=== PATIENT | female | born 1995 | race African-American/Black ===

== ENCOUNTER 2023-01-31 09:45 | Outpatient (RCR) | payer OTHER, SELFPAY ==
--- NOTE | 2022-11-10 16:00 | OT.OP.EVAL ---
Visit Care Team Role Provider Type Jasmine Arteaga PA-C Attending Provider Non-Staff Family Provider Primary Care Provider Referring Provider Specialty: Medical Address: [address] [facility] [address], [place], [address] Email: Occupational Therapy Initial Evaluation OT Outpatient Adult Evaluation Start: 11/14/22 12:28 Freq: Status: Active Protocol: Document 11/10/22 16:00 AMS (Rec: 11/14/22 13:01 AMS [id number]) General Information - Adult Plan of Care Dates 11/10/22 - 01/05/23 Insurance Information Prime; EVAL ONLY --> then 12 vists Visit Start Time 07:40 Visit Stop Time 08:15 Total Visit Minutes 35 Treatment Setting Outpatient Care Note Type Initial Evaluation Identification Confirmed Yes Identification Confirmed By Self Goals Short Term Goals 1. Tyi will present with improved pain-free active range of motion of wrist: 1a. 0-45 degrees pain-free active R wrist flexion. 1b. 0-55 degrees pain-free active R wrist extension. 1c. 0-20 degrees pain-free active R wrist UD. Half-Way Goals 1. Tyi will be modified independent with home exercise program utilizing provided written and visual instructions from therapist. 2. Tyi will present with improved right wrist strength: 2a. 5/5 MMT right wrist flexion. 2b. 5/5 MMT right wrist extension. 2c. 5/[address] 2d. 5/5 MMT right wrist UD. 3. Tyi will present with increased ability to actively participate in meaningful activities (including lifting) ; this will be evidenced by the followina. Tyi will indicate 2 or less out of 10 on the Pain Assessment Grid relative to the distal R UE. 3b. Tyi will obtain a score of 25.00 or less on the QuickDASH UE Outcome Measure. 3c. Tyi will obtain a score of 25.00 or less on the QuickDASH UE Sports/Performing Arts Module. 3d. Tyi will report that she is able to execute 10 or more push-ups without complaints of pain/discomfort of the distal R UE. Assessment/Plan Treatment Assessment Krunal is a 26 year-old right hand dominant female referred to outpatient OT secondary to suspected R flexor tendonitis. Medical history: Depression; Tonsillectomy (October 2020). 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 Symptoms presented reported in Mar/Apr and over the last couple of weeks symptoms have gotten worse. On Pain Assessment Grid, Krunal indicated 8 out of 10 on the Pain Assessment Grid relative to the distal R UE (dorsal/ volar surfaces of the R hand were specifically indicated on the hand/wrist Pain Assessment Grid). She obtained a QuickDASH UE Outcome Measure Score of = 54.55 and QuickDASH UE Outcome Measure Sports/Performing Arts ( Lifting) Module Score of = 37. 50. Pain reported w/ palpation of the R volar wrist; tightness of thumb adductor palpated R > L. She does c/o numbness; with reverse Phalen' s test, she was able to tolerate positioning of wrists in bilateral flexion x 1 minute however, some discomfort was noted. She Tyi denies use of right distal UE brace; she is not doing push- ups and has decreased weight/ resistance w/ lifting secondary to symptoms. She is icing and doing stretches for the wrists throughout the day, as well as taking anti inflammatory. Goniometer Measurements: 0-45 degrees active R wrist flexion versus 0-30 degrees active pain-free R wrist flexion; 0-55 degrees active R wrist extension versus 0-45 degrees pain-free active R wrist extension; 0-15 degrees active R pain-free wrist RD; 0-20 degrees active R wrist UD versus 0-15 degrees active pain-free R wrist UD. MMT results = 3/5 R wrist flex MMT; 3+/5 wrist ext MMT; 3/[address] MMT; 3/5 wrist UD MMT. Dynamometer II strength testing results = 18.0# of force R silo painter versus 68.0# of force w/ L silo painter w/ elbow in 90 degrees; 5.0# of force w/ R silo painter versus 52.0# of force w/ L silo painter w/ elbow in ext. Krunal presents with distal R UE pain/discomfort, decreased pain-free R wrist ROM, decreased R wrist strength, decreased silo painter strength, and decreased ability to engage in meaningful activities, including lifting; she would likely benefit from outpatient OT to address these areas in order to maximize her success w/ active engagement in meaningful activites in day-to -day life. Recommend monitoring for signs of median nerve impingement given Tyi's concerns; recommend completing Tinel's test. Home Exercise Program 11/10/22 = Provided w/ [employer] theraputty d/t concerns w/ decreased silo painter strength; instructed in care and storage of theraputty. Rec working on gross flexion and pinching and pulling theraputty. Rec wrist flexion and wrist extension passive range of motion exercises; holding each stretch for 20 to 30 seconds. Also instructed in self myofascial release of bilateral thumb adductors w/ instruction to hold for 20 to 30 seconds. Length of treatment (weeks) 8 Plan of Care Start Date 11/10/22 Plan of Care End Date 01/05/23 Treatment Frequency Once a Week Therapeutic Contents Active Range of Motion, Adaptive Equipment Education, Client Education,Cognitive Skills Development,Functional Activities,Home Exercise Program,Joint Protection, Manual Therapy,Education, Neurodevelopment Treatment, Self-Care,Stretching/ Flexibility Activities, Therapeutic Activities, Therapeutic Exercises, Modalities Modalities As Needed,As Prescribed Additional Types of Modalities Ultrasound/Heat/Ice/Contrast baths/Paraffin bath
--- NOTE | 2022-11-15 16:00 | OT.OP.TRT ---
Visit Care Team Role Provider Type Jasmine Arteaga PA-C Attending Provider Non-Staff Family Provider Primary Care Provider Referring Provider Specialty: Medical Address: [address] [place] [address] , [place], [address] Email: Occupational Therapy Treatment Note OT Outpatient Treatment Note - Adult Start: 11/14/22 12:28 Freq: Status: Active Protocol: Document 11/15/22 16:00 AMS (Rec: 11/16/22 09:30 AMS [id number]) OT Outpatient Adult Treatment Note Session Time Visit Start Time 07:30 Visit Stop Time 08:15 Total Visit Minutes 45 Visit Information Visit Number [id number] Plan of Care Dates 11/10/22 - 01/05/23 Insurance Information Prime; EVAL ONLY --> then 12 visits Visit Type Note Type Treatment Note General Information General Information Krunal is a 26 year-old right hand dominant female referred to outpatient OT secondary to suspected R flexor tendonitis. Medical history: Depression; Tonsillectomy (October 2020). 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 - Subjective Identification Type Name Identification Reconciled With Medical Record Observations Krunal reports completing recommended stretches. She reports bench pressing 250# versus current weight of 140#. Patient/Caregiver Compliance with Home Excellent Exercise Program - Objective Objective Measurements Please refer to below for progress towards meeting established OT goals: Short Term Goals 1. Tyi will present with improved pain-free active range of motion of wrist: 1a. 0-45 degrees pain-free active R wrist flexion. 1b. 0-55 degrees pain-free active R wrist extension. 1c. 0-20 degrees pain-free active R wrist UD. Senior Living Goals 1. Tyi will be modified independent with home exercise program utilizing provided written and visual instructions from therapist. 2. Tyi will present with improved right wrist strength: 2a. 5/5 MMT right wrist flexion. 2b. 5/5 MMT right wrist extension. 2c. 5/[address] 2d. 5/5 MMT right wrist UD. 3. Tyi will present with increased ability to actively participate in meaningful activities (including lifting) ; this will be evidenced by the followina. Tyi will indicate 2 or less out of 10 on the Pain Assessment Grid relative to the distal R UE. 3b. Tyi will obtain a score of 25.00 or less on the QuickDASH UE Outcome Measure. 3c. Krunal will obtain a score of 25.00 or less on the QuickDASH UE Sports/Performing Arts Module. 3d. Krunal will report that she is able to execute 10 or more push-ups without complaints of pain/discomfort of the distal R UE. - Exercises 7 Descriptor Weight bearing. TT. L <-> R weight shift. 2 x 10. Box. Bosu. starting plank w/ dynamic stabilization. 6 Descriptor Wrist strengthening/Dynamic stabilization. 2.2# weighted spherical ball. Catching. 2 x 10. 5 Descriptor Wrist strengthening. TB #4. 1 x 15. Wrist flex. Wrist ext. Wrist UD (TT loop). Wrist RD. 4 Descriptor Self myofascial release. Carpal ligament 3 Descriptor Tendon glides. 2 Descriptor Passive range of motion. Wrist extension. Wrist flexion . - Assessment Assessment of Improvement Upgraded home exercise program . Reproduction of symptoms w/ Tinel's test reported. Thus, recommended splint wearing at night. Will need to follow-up. 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 Home Exercise Program 11/16/22 = Provided personal TB #4 resistance band. Rec 3 sets of 15 reps every other day or 3 x a week. Wrist flex. Wrist ext. Wrist RD. Wrist UD. Instructed in tendon glides. Instructed in self myofascial release (carpal ligament) at wall. Recommended wrist cock- up splint w/ rigid volar wrist component. - Plan Therapy Recommendations Continue with Current Program, Advance per Rehabilitation Protocol
--- NOTE | 2022-11-29 10:52 | OT.OP.TRT ---
Visit Care Team Role Provider Type Jasmine Arteaga PA-C Attending Provider Non-Staff Family Provider Primary Care Provider Referring Provider Specialty: Medical Address: [address], [place], [address] Email: Occupational Therapy Treatment Note OT Outpatient Treatment Note - Adult Start: 11/14/22 12:28 Freq: Status: Active Protocol: Document 11/29/22 10:41 AMS (Rec: 11/29/22 10:52 AMS [id number]) OT Outpatient Adult Treatment Note Session Time Visit Start Time 07:35 Visit Stop Time 08:20 Total Visit Minutes 45 Visit Information Visit Number [id number] Plan of Care Dates 11/10/22 - 01/05/23 Insurance Information Prime; EVAL ONLY --> then 12 visits Setting Treatment Setting Outpatient Care Visit Type Note Type Treatment Note General Information General Information Krunal is a 26 year-old right hand dominant female referred to outpatient OT secondary to suspected R flexor tendonitis. Medical history: Depression; Tonsillectomy (October 2020). 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 - Subjective Identification Type Name Identification Reconciled With Medical Record Observations Krunal reports taking a break from weight lifting at this time; she is also currently rehabilitating her L knee w/ PT. 11/29/22 = She reports bench pressing 250# versus current weight of 140#. Patient/Caregiver Compliance with Home Excellent Exercise Program - Objective Objective Measurements Please refer to below for progress towards meeting established OT goals: Short Term Goals 1. Tyi will present with improved pain-free active range of motion of wrist: 1a. 0-45 degrees pain-free active R wrist flexion. 1b. 0-55 degrees pain-free active R wrist extension. 1c. 0-20 degrees pain-free active R wrist UD. Correction Goals 1. Tyi will be modified independent with home exercise program utilizing provided written and visual instructions from therapist. 2. Tyi will present with improved right wrist strength: 2a. 5/5 MMT right wrist flexion. 2b. 5/5 MMT right wrist extension. 2c. 5/[address] 2d. 5/5 MMT right wrist UD. 3. Tyi will present with increased ability to actively participate in meaningful activities (including lifting) ; this will be evidenced by the followina. Tyi will indicate 2 or less out of 10 on the Pain Assessment Grid relative to the distal R UE. 3b. Tyi will obtain a score of 25.00 or less on the QuickDASH UE Outcome Measure. 3c. Tyi will obtain a score of 25.00 or less on the QuickDASH UE Sports/Performing Arts Module. 3d. Tyi will report that she is able to execute 10 or more push-ups without complaints of pain/discomfort of the distal R UE. - Exercises 7 Descriptor Weight bearing. Box. Bosu. Starting plank w/ dynamic stabilization. 2 x 10. 6 Descriptor Wrist strengthening/Dynamic stabilization. 3.3# weighted spherical ball. Angled Trampoline. Overhand throw w/ R handed catch w/ wrist in ext/forearm pronation 1 x 15. Overhand throw w/ alternating UE catch w/ wrist in ext/foream supination 1 x 15. Overhand throw w/ sh abd w / wrist in ext/forearm pronation 1 x 15. Approx 5-inch ball. Palm positioned at shoulder height w/ elbow in ext w/ wrist ext/ forearm pronation. L <-> R 1 x 15. CW/CCW circles 1 x 15. Up <-> down 1 x 15. Box bosu. TT. 2 x 15. Not ready to progress to floor level. 5 Descriptor Wrist strengthening. Elbow in 90 degrees flexion. Forearm supported on arm rest w/ wrist ext, flex, RD. Wrist ext 4# DB. 3 x 15. Wrist flex 4# DB. [address] 4# DB. 3 x 15. Wrist UD 4# DB. 3 x 15. Wrist ext 2 cycles. 5# DB w/ elbows extended w/ use of dowel/rope. Wrist flex 1 cycle. 5# DB w/ elbows extended w/ use of dowel/rope. 11/29/22 = c/o discomfort; thus , transitioned to DB use. TB # 4. 1 x 15. Wrist flex. Wrist ext. Wrist UD (TT loop). Wrist RD. 4 Descriptor Self myofascial release. Carpal ligament 3 Descriptor Tendon glides. 2 Descriptor Passive range of motion. Wrist extension. Wrist flexion . Distraction of wrist. - Assessment Assessment of Improvement (+) use of splint; will need to review splint wearing schedule. Report of 5-7 on verbal pain scale relative to R wrist pain. Transitioned to DB strengthening given c/o exacerbation of symptoms w/ use of TB. Upgraded dynamic stabilization exercises; introduced angled trampoline w / throw and catch w/ weighted spherical ball. Also introduced wall wrist stabilization exercises w/ use of ball and wrist strengthening exercises w/ use of dowel/rope w/ attached DB. Overall, good session. Ice massage to ulnar volar surface of R wrist x 6 minutes. Krunal presents with distal R UE pain/discomfort, decreased pain-free R wrist ROM, decreased R wrist strength, decreased on call strength, and decreased ability to engage in meaningful activities, including lifting; she would likely benefit from outpatient OT to address these areas in order to maximize her success w/ active engagement in meaningful activites in day-to -day life. Home Exercise Program 11/16/22 = Provided personal TB #4 resistance band. Rec 3 sets of 15 reps every other day or 3 x a week. Wrist flex. Wrist ext. Wrist RD. Wrist UD. Instructed in tendon glides. Instructed in self myofascial release (carpal ligament) at wall. Recommended wrist cock- up splint w/ rigid volar wrist component. - Plan Therapy Recommendations Continue with Current Program, Advance per Rehabilitation Protocol
--- NOTE | 2022-12-06 09:26 | OT.OP.TRT ---
Visit Care Team Role Provider Type Jasmine Arteaga PA-C Attending Provider Non-Staff Family Provider Primary Care Provider Referring Provider Specialty: Medical Address: [address] [facility] , [place], [address] Email: Occupational Therapy Treatment Note OT Outpatient Treatment Note - Adult Start: 11/14/22 12:28 Freq: Status: Active Protocol: Document 12/06/22 09:17 AMS (Rec: 12/06/22 09:26 AMS [id number]) OT Outpatient Adult Treatment Note Session Time Visit Start Time 08:33 Visit Stop Time 09:13 Total Visit Minutes 40 Visit Information Visit Number 07/[id number] Plan of Care Dates 11/10/22 - 01/05/23 Insurance Information Prime; EVAL ONLY --> then 12 visits Setting Treatment Setting Outpatient Care Visit Type Note Type Treatment Note General Information General Information Krunal is a 26 year-old right hand dominant female referred to outpatient OT secondary to suspected R flexor tendonitis. Medical history: Depression; Tonsillectomy (October 2020). 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 - Subjective Identification Type Name Identification Reconciled With Medical Record Observations Krunal reports discomfort of R wrist w/ shooting discomfort to dorsal 3rd digit of the R hand. 11/29/22 = She reports bench pressing 250# versus current weight of 140#. Patient/Caregiver Compliance with Home Excellent Exercise Program - Objective Objective Measurements Please refer to below for progress towards meeting established OT goals: Short Term Goals 1. Tyi will present with improved pain-free active range of motion of wrist: 1a. 0-45 degrees pain-free active R wrist flexion. 1b. 0-55 degrees pain-free active R wrist extension. 1c. 0-20 degrees pain-free active R wrist UD. Dining Room Supervisor Goals 1. Tyi will be modified independent with home exercise program utilizing provided written and visual instructions from therapist. 2. Tyi will present with improved right wrist strength: 2a. 5/5 MMT right wrist flexion. 2b. 5/5 MMT right wrist extension. 2c. 5/[address] 2d. 5/5 MMT right wrist UD. 3. Tyi will present with increased ability to actively participate in meaningful activities (including lifting) ; this will be evidenced by the followina. Tyi will indicate 2 or less out of 10 on the Pain Assessment Grid relative to the distal R UE. 3b. Tyi will obtain a score of 25.00 or less on the QuickDASH UE Outcome Measure. 3c. Tyi will obtain a score of 25.00 or less on the QuickDASH UE Sports/Performing Arts Module. 3d. Tyi will report that she is able to execute 10 or more push-ups without complaints of pain/discomfort of the distal R UE. - Treatment 1 Descriptor Manual. Support of wrist range of motion. Exercises 7 Descriptor Weight bearing. Box. Bosu. Starting plank w/ dynamic stabilization. 2 x 10. 6 Descriptor Wrist strengthening/Dynamic stabilization. 3.3# weighted spherical ball. Angled Trampoline. Overhand throw w/ R handed catch w/ wrist in ext/forearm pronation 1 x 15. Overhand throw w/ alternating UE catch w/ wrist in ext/foream pronation 1 x 15 . Overhand throw w/ sh abd w/ wrist in ext/forearm pronation 1 x 15. N/A 12/06/22 Approx 5-inch ball. Palm positioned at shoulder height w/ elbow in ext w/ wrist ext/ forearm pronation. L <-> R 1 x 15. CW/CCW circles 1 x 15. Up <-> down 1 x 15. Box bosu. TT. 2 x 15. Not ready to progress to floor level. 5 Descriptor Wrist strengthening. Elbow in 90 degrees flexion. Forearm supported on arm rest w/ wrist ext, flex, RD. Wrist ext 4# DB. 3 x 15. Wrist flex 4# DB. [address] 4# DB. 3 x 15. Wrist UD 4# DB. 3 x 15. Wrist arc 3.3# weighted spherical ball. 3 x 15. Elbow in slight flexion. TT. N/A 12/06/22 Wrist ext 2 cycles. 5# DB w/ elbows extended w/ use of dowel/rope. Wrist flex 1 cycle. 5# DB w/ elbows extended w/ use of dowel/rope. 11/29/22 = c/o discomfort; thus , transitioned to DB use. TB # 4. 1 x 15. Wrist flex. Wrist ext. Wrist UD (TT loop). Wrist RD. 4 Descriptor Wall walk-outs. Hands positioned at sh height. 1 x 15. 3 Descriptor Squat machine. 12# Modified push-ups. 1 x 15. 12# Modified push-ups balance disk (horizontal positioning). 1 x 15. 12# Modified push-ups balance disk (vertical positioning). 1 x 15. 2 Descriptor Passive range of motion. Wrist extension. Wrist flexion . Distraction of wrist. - Assessment Assessment of Improvement (+) use of splint. (+) report of carry-over of home exercise program recommendations. Report of inconsistent presentation of pain/ discomfort of the R wrist; report of some discomfort ' shooting' into 3rd digit of the R hand. Discomfort reported w/ passive wrist ext and RD/UD. Thus, completed wall/squat machine exercises versus utilization of bosu. Overall, good session. Krunal presents with distal R UE pain/discomfort, decreased pain-free R wrist ROM, decreased R wrist strength, decreased health care attorney strength, and decreased ability to engage in meaningful activities, including lifting; she would likely benefit from outpatient OT to address these areas in order to maximize her success w/ active engagement in meaningful activites in day-to -day life. Home Exercise Program 11/16/22 = Provided personal TB #4 resistance band. Rec 3 sets of 15 reps every other day or 3 x a week. Wrist flex. Wrist ext. Wrist RD. Wrist UD. Instructed in tendon glides. Instructed in self myofascial release (carpal ligament) at wall. Recommended wrist cock- up splint w/ rigid volar wrist component. - Plan Therapy Recommendations Continue with Current Program, Advance per Rehabilitation Protocol
--- NOTE | 2022-12-13 09:30 | OT.OP.TRT ---
Visit Care Team Role Provider Type Jasmine Arteaga PA-C Attending Provider Non-Staff Family Provider Primary Care Provider Referring Provider Specialty: Medical Address: [address], [place], [address] Email: Occupational Therapy Treatment Note OT Outpatient Treatment Note - Adult Start: 11/14/22 12:28 Freq: Status: Active Protocol: Document 12/13/22 09:20 AMS (Rec: 12/13/22 09:29 AMS [id number]) OT Outpatient Adult Treatment Note Session Time Visit Start Time 08:40 Visit Stop Time 09:15 Total Visit Minutes 35 Visit Information Visit Number [id number] Plan of Care Dates 11/10/22 - 01/05/23 Insurance Information Prime; EVAL ONLY --> then 12 visits Setting Treatment Setting Outpatient Care Visit Type Note Type Treatment Note General Information General Information Krunal is a 26 year-old right hand dominant female referred to outpatient OT secondary to suspected R flexor tendonitis. Medical history: Depression; Tonsillectomy (October 2020). 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 - Subjective Identification Type Name Identification Reconciled With Medical Record Observations Report of pain/discomfort w/ R wrist RD and wrist flexion. Patient/Caregiver Compliance with Home Excellent Exercise Program - Objective Objective Measurements Please refer to below for progress towards meeting established OT goals: Short Term Goals 1. Tyi will present with improved pain-free active range of motion of wrist: 1a. 0-45 degrees pain-free active R wrist flexion. 1b. 0-55 degrees pain-free active R wrist extension. 1c. 0-20 degrees pain-free active R wrist UD. [facility] Goals 1. Tyi will be modified independent with home exercise program utilizing provided written and visual instructions from therapist. 2. Tyi will present with improved right wrist strength: 2a. 5/5 MMT right wrist flexion. 2b. 5/5 MMT right wrist extension. 2c. 5/[address] 2d. 5/5 MMT right wrist UD. 3. Tyi will present with increased ability to actively participate in meaningful activities (including lifting) ; this will be evidenced by the followina. Tyi will indicate 2 or less out of 10 on the Pain Assessment Grid relative to the distal R UE. 3b. Tyi will obtain a score of 25.00 or less on the QuickDASH UE Outcome Measure. 3c. Tyi will obtain a score of 25.00 or less on the QuickDASH UE Sports/Performing Arts Module. 3d. Tyi will report that she is able to execute 10 or more push-ups without complaints of pain/discomfort of the distal R UE. - Treatment 1 Descriptor Manual. Support of wrist range of motion. Exercises 6 Descriptor Wrist strengthening/Dynamic stabilization. Foam Press. 3 x 15. Modified d /t discomfort w/ increased pressure. Yellow ball wall stabilization exercises. L <-> R 1 x 15; CW & CCW 1 x 15. N/A 12/13/22 3.3# weighted spherical ball. Angled Trampoline. Overhand throw w/ R handed catch w/ wrist in ext/forearm pronation 1 x 15. Overhand throw w/ alternating UE catch w/ wrist in ext/foream pronation 1 x 15 . Overhand throw w/ sh abd w/ wrist in ext/forearm pronation 1 x 15. N/A 12/06/22 Approx 5-inch ball. Palm positioned at shoulder height w/ elbow in ext w/ wrist ext/ forearm pronation. L <-> R 1 x 15. CW/CCW circles 1 x 15. Up <-> down 1 x 15. Box bosu. TT. 2 x 15. Not ready to progress to floor level. 5 Descriptor Wrist strengthening. Elbow in 90 degrees flexion. Forearm supported on arm rest w/ wrist ext, flex, RD. Wrist ext 4# DB. 3 x 15. Wrist flex 4# DB. [address] 4# DB. 3 x 15. Wrist UD 4# DB. 3 x 15. N/A 12/13/22 Wrist arc 3.3# weighted spherical ball. 3 x 15. Elbow in slight flexion. TT. N/A 12/06/22 Wrist ext 2 cycles. 5# DB w/ elbows extended w/ use of dowel/rope. Wrist flex 1 cycle. 5# DB w/ elbows extended w/ use of dowel/rope. 11/29/22 = c/o discomfort; thus , transitioned to DB use. TB # 4. 1 x 15. Wrist flex. Wrist ext. Wrist UD (TT loop). Wrist RD. 4 Descriptor Wall walk-outs. Hands positioned at sh height. 1 x 15. 3 Descriptor Squat machine. 12# Modified push-ups. 1 x 15. 12# Modified push-ups balance disk (horizontal positioning). 1 x 15. 12# Modified push-ups balance disk (vertical positioning). 1 x 15. - Assessment Assessment of Improvement (+) use of splint. (+) report of carry-over of home exercise program recommendations. Report of inconsistent presentation of pain/ discomfort of the R wrist; report of pain/discomfort w/ wrist flexion and RD w/ manual . Report of discomfort w/ pressure application w/ use of foam w/ wrist/digits in extension. Thus, modified ther exercises. Crepitus noted in R wrist w/ reported discomfort . Ice massage to volar R wrist x 6 massage. Overall, good session. Krunal presents with distal R UE pain/discomfort, decreased pain-free R wrist ROM, decreased R wrist strength, decreased resourcing consultant strength, and decreased ability to engage in meaningful activities, including lifting; she would likely benefit from outpatient OT to address these areas in order to maximize her success w/ active engagement in meaningful activites in day-to -day life. Home Exercise Program 12/13/22 = Rec removal of splint hourly w/ passive range of motion to wrist. Recommend icing 1-2 times per day. 11/16/22 = Provided personal TB #4 resistance band. Rec 3 sets of 15 reps every other day or 3 x a week. Wrist flex. Wrist ext. Wrist RD. Wrist UD. Instructed in tendon glides. Instructed in self myofascial release (carpal ligament) at wall. Recommended wrist cock- up splint w/ rigid volar wrist component. - Plan Therapy Recommendations Continue with Current Program, Advance per Rehabilitation Protocol
--- NOTE | 2022-12-21 08:44 | OT.OP.TRT ---
Visit Care Team Role Provider Type Jasmine Arteaga PA-C Attending Provider Non-Staff Family Provider Primary Care Provider Referring Provider Specialty: Medical Address: [address] [place] [address] , [place], [address] Email: Occupational Therapy Treatment Note OT Outpatient Treatment Note - Adult Start: 11/14/22 12:28 Freq: Status: Active Protocol: Document 12/21/22 08:36 AMS (Rec: 12/21/22 08:44 AMS [id number]) OT Outpatient Adult Treatment Note Session Time Visit Start Time 07:30 Visit Stop Time 08:13 Total Visit Minutes 43 Visit Information Visit Number 09/[id number] Plan of Care Dates 11/10/22 - 01/05/23 Insurance Information Prime; EVAL ONLY --> then 12 visits Setting Treatment Setting Outpatient Care Visit Type Note Type Treatment Note General Information General Information Krunal is a 26 year-old right hand dominant female referred to outpatient OT secondary to suspected R flexor tendonitis. Medical history: Depression; Tonsillectomy (October 2020). 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 - Subjective Identification Type Name Identification Reconciled With Medical Record Observations Report of pain/discomfort of dorsal R wrist --> distal dorsal ulnar hand (4th/5th digits). Patient/Caregiver Compliance with Home Excellent Exercise Program - Objective Objective Measurements Please refer to below for progress towards meeting established OT goals: Short Term Goals 1. Tyi will present with improved pain-free active range of motion of wrist: 1a. 0-45 degrees pain-free active R wrist flexion. 1b. 0-55 degrees pain-free active R wrist extension. 1c. 0-20 degrees pain-free active R wrist UD. [facility] Goals 1. Tyi will be modified independent with home exercise program utilizing provided written and visual instructions from therapist. 2. Tyi will present with improved right wrist strength: 2a. 5/5 MMT right wrist flexion. 2b. 5/5 MMT right wrist extension. 2c. 5/[address] 2d. 5/5 MMT right wrist UD. 3. Tyi will present with increased ability to actively participate in meaningful activities (including lifting) ; this will be evidenced by the followina. Tyi will indicate 2 or less out of 10 on the Pain Assessment Grid relative to the distal R UE. 3b. Tyi will obtain a score of 25.00 or less on the QuickDASH UE Outcome Measure. 3c. Tyi will obtain a score of 25.00 or less on the QuickDASH UE Sports/Performing Arts Module. 3d. Tyi will report that she is able to execute 10 or more push-ups without complaints of pain/discomfort of the distal R UE. - Treatment 1 Descriptor Manual. Support of wrist range of motion. Exercises 6 Descriptor Wrist strengthening/Dynamic stabilization. Foam Press. 3 x 15. L <-> R. Blue balance disk. 3 x 15. L < -> R. 3.3# weighted spherical ball. Angled Trampoline. Forearm pronation w/ wrist ext 2 x 15. Forearm pronation, UD and RD. 2 x 15. Forearm pronation w/ wrist ext 2 x 15 body turned 90 degrees. N/A 12/06/22 Approx 5-inch ball. Palm positioned at shoulder height w/ elbow in ext w/ wrist ext/ forearm pronation. L <-> R 1 x 15. CW/CCW circles 1 x 15. Up <-> down 1 x 15. Box bosu. TT. 2 x 15. Not ready to progress to floor level. 5 Descriptor Wrist strengthening. Elbow in 90 degrees flexion. Forearm supported on arm rest w/ wrist ext, flex, RD. Wrist ext 4# DB. 3 x 15. Wrist flex 4# DB. [address] 4# DB. 3 x 15. Wrist UD 4# DB. 3 x 15. Wrist arc 3.3# weighted spherical ball. 3 x 15. Elbow 90 degrees flexion. TT. Wrist ext 3 cycles. 4# DB w/ elbows extended w/ use of dowel/rope. 11/29/22 = c/o discomfort; thus , transitioned to DB use. TB # 4. 1 x 15. Wrist flex. Wrist ext. Wrist UD (TT loop). Wrist RD. - Assessment Assessment of Improvement (+) use of splint. (+) report of carry-over of home exercise program recommendations. Report of ulnar sided dorsal R wrist pain/dorsal ulnar sided R hand pain. Re-introduced angled trampoline and blue balance disk dynamic exercises . R wrist fatigue noted. Re- introduced wrist strengthening via use of wood dowel and dumbbell. Overall, good session. Advance dynamic wrist stabilization exercises as able. Krunal presents with distal R UE pain/discomfort, decreased pain-free R wrist ROM, decreased R wrist strength, decreased director community organization strength, and decreased ability to engage in meaningful activities, including lifting; she would likely benefit from outpatient OT to address these areas in order to maximize her success w/ active engagement in meaningful activites in day-to -day life. Home Exercise Program 12/13/22 = Rec removal of splint hourly w/ passive range of motion to wrist. Recommend icing 1-2 times per day. 11/16/22 = Provided personal TB #4 resistance band. Rec 3 sets of 15 reps every other day or 3 x a week. Wrist flex. Wrist ext. Wrist RD. Wrist UD. Instructed in tendon glides. Instructed in self myofascial release (carpal ligament) at wall. Recommended wrist cock- up splint w/ rigid volar wrist component. - Plan Therapy Recommendations Continue with Current Program, Advance per Rehabilitation Protocol Additional Therapy Recommendations Msg to front maker staff to schedule add visits
--- NOTE | 2023-01-17 11:10 | OT.OPPOC ---
Physical, Occupational & Speech Therapy At [facility] Krunal Manzano [id number] 1995 Visit Care Team Role Provider Type Jasmine Arteaga PA-C Attending Provider Non-Staff Family Provider Primary Care Provider Referring Provider Address: [address] [place], [address] Occupational Therapy Plan of Care OT Outpatient Adult Evaluation Start: 11/14/22 12:28 Freq: Status: Active Protocol: Document 11/10/22 16:00 AMS (Rec: 11/14/22 13:01 AMS [id number]) General Information - Adult Visit Information Plan of Care Dates 11/10/22 - 01/05/23 Insurance Information Prime; EVAL ONLY --> then 12 vists Session Time Visit Start Time 07:40 Visit Stop Time 08:15 Total Visit Minutes 35 Setting Treatment Setting Outpatient Care Visit Type Note Type Initial Evaluation Identification Identification Confirmed Yes Identification Confirmed By Self Goals Short Term Goals Short Term Goals 1. Tyi will present with improved pain-free active range of motion of wrist: 1a. 0-45 degrees pain-free active R wrist flexion. 1b. 0-55 degrees pain-free active R wrist extension. 1c. 0-20 degrees pain-free active R wrist UD. [employer] Goals Detention Goals 1. Tyi will be modified independent with home exercise program utilizing provided written and visual instructions from therapist. 2. Tyi will present with improved right wrist strength: 2a. 5/5 MMT right wrist flexion. 2b. 5/5 MMT right wrist extension. 2c. 5/[address] 2d. 5/5 MMT right wrist UD. 3. Tyi will present with increased ability to actively participate in meaningful activities (including lifting) ; this will be evidenced by the followina. Tyi will indicate 2 or less out of 10 on the Pain Assessment Grid relative to the distal R UE. 3b. Tyi will obtain a score of 25.00 or less on the QuickDASH UE Outcome Measure. 3c. Tyi will obtain a score of 25.00 or less on the QuickDASH UE Sports/Performing Arts Module. 3d. Tyi will report that she is able to execute 10 or more push-ups without complaints of pain/discomfort of the distal R UE. Assessment/Plan Assessment Treatment Assessment Krunal is a 26 year-old right hand dominant female referred to outpatient OT secondary to suspected R flexor tendonitis. Medical history: Depression; Tonsillectomy (October 2020). 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 Symptoms presented reported in Mar/Apr and over the last couple of weeks symptoms have gotten worse. On Pain Assessment Grid, Krunal indicated 8 out of 10 on the Pain Assessment Grid relative to the distal R UE (dorsal/ volar surfaces of the R hand were specifically indicated on the hand/wrist Pain Assessment Grid). She obtained a QuickDASH UE Outcome Measure Score of = 54.55 and QuickDASH UE Outcome Measure Sports/Performing Arts ( Lifting) Module Score of = 37. 50. Pain reported w/ palpation of the R volar wrist; tightness of thumb adductor palpated R > L. She does c/o numbness; with reverse Phalen' s test, she was able to tolerate positioning of wrists in bilateral flexion x 1 minute however, some discomfort was noted. She Tyi denies use of right distal UE brace; she is not doing push- ups and has decreased weight/ resistance w/ lifting secondary to symptoms. She is icing and doing stretches for the wrists throughout the day, as well as taking anti inflammatory. Goniometer Measurements: 0-45 degrees active R wrist flexion versus 0-30 degrees active pain-free R wrist flexion; 0-55 degrees active R wrist extension versus 0-45 degrees pain-free active R wrist extension; 0-15 degrees active R pain-free wrist RD; 0-20 degrees active R wrist UD versus 0-15 degrees active pain-free R wrist UD. MMT results = 3/5 R wrist flex MMT; 3+/5 wrist ext MMT; 3/[address] MMT; 3/5 wrist UD MMT. Dynamometer II strength testing results = 18.0# of force R medication manager versus 68.0# of force w/ L medication manager w/ elbow in 90 degrees; 5.0# of force w/ R medication manager versus 52.0# of force w/ L medication manager w/ elbow in ext. Krunal presents with distal R UE pain/discomfort, decreased pain-free R wrist ROM, decreased R wrist strength, decreased medication manager strength, and decreased ability to engage in meaningful activities, including lifting; she would likely benefit from outpatient OT to address these areas in order to maximize her success w/ active engagement in meaningful activites in day-to -day life. Recommend monitoring for signs of median nerve impingement given Krunal's concerns; recommend completing Tinel's test. Home Exercise Program 11/10/22 = Provided w/ [employer] theraputty d/t concerns w/ decreased medication manager strength; instructed in care and storage of theraputty. Rec working on gross flexion and pinching and pulling theraputty. Rec wrist flexion and wrist extension passive range of motion exercises; holding each stretch for 20 to 30 seconds. Also instructed in self myofascial release of bilateral thumb adductors w/ instruction to hold for 20 to 30 seconds. Plan Length of treatment (weeks) 8 Plan of Care Start Date 11/10/22 Plan of Care End Date 01/05/23 Treatment Frequency Once a Week Therapeutic Contents Active Range of Motion, Adaptive Equipment Education, Client Education,Cognitive Skills Development,Functional Activities,Home Exercise Program,Joint Protection, Manual Therapy,Education, Neurodevelopment Treatment, Self-Care,Stretching/ Flexibility Activities, Therapeutic Activities, Therapeutic Exercises, Modalities Modalities As Needed,As Prescribed Additional Types of Modalities Ultrasound/Heat/Ice/Contrast baths/Paraffin bath Functional Wrist/Hand Scan Hand Side Sensory Assessment Sensory Profile2 OT Outpatient Treatment Note - Adult Start: 11/14/22 12:28 Freq: Status: Active Protocol: Document 01/17/23 10:56 AMS (Rec: 01/17/23 11:10 [facility] [id number]) OT Outpatient Adult Treatment Note Session Time Visit Start Time 09:50 Visit Stop Time 10:30 Total Visit Minutes 40 Visit Information Visit Number 10/17 Plan of Care Dates 01/05/23 - 03/02/23 Insurance Information Prime; EVAL ONLY --> then 12 visits Setting Treatment Setting Outpatient Care Visit Type Note Type Treatment Note General Information General Information Krunal is a 27 year-old right hand dominant female referred to outpatient OT secondary to suspected R flexor tendonitis. Medical history: Depression; Tonsillectomy (October 2020). 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 - Subjective Identification Type Name Identification Reconciled With Medical Record Observations Pain Assessment Grid completed ; indication of 7 out of 10 on the pain scale relative to dorsal and volar surfaces of the R hand. Intermittent c/o distal UE numbness. Report of using ice and taking prescribed pain medication. Patient/Caregiver Compliance with Home Excellent Exercise Program - Objective Objective Measurements Please refer to below for progress towards meeting established OT goals: Short Term Goals GOALS MET 0-45 degrees pain-free active R wrist flexion. *MET 01/17/23; 0-50 degrees pain-free active R wrist flex 0-45 degrees pain-free active R wrist flexion. *MET 01/17/23; 0-67 degrees pain-free active R wrist ext 0-20 degrees pain-free active R wrist UD. *MET 01/17/23; 0-25 degrees pain-free active R wrist UD Detention Goals 1. Tyi will be modified independent with home exercise program utilizing provided written and visual instructions from therapist. 2. Tyi will present with improved right wrist strength: 2a. 5/5 MMT right wrist flexion. 01/17/23 = 4+/5 ( versus initial 3/5 MMT) 2b. 5/5 MMT right wrist extension. 01/17/23 = 4/5 ( versus initial 3+/5 MMT) 2c. 5/[address] = 4+/5 (versus initial 3/5 MMT) 2d. 5/5 MMT right wrist UD. = 4+/5 (versus initial 3/5 MMT) 3. Tyi will present with increased ability to actively participate in meaningful activities (including lifting) ; this will be evidenced by the followina. Tyi will indicate 2 or less out of 10 on the Pain Assessment Grid relative to the distal R UE. 01/17/23 = 7/ 10 see scanned Pain Assessment Grid 3b. Tyi will obtain a score of 25.00 or less on the QuickDASH UE Outcome Measure. 3c. Tyi will obtain a score of 25.00 or less on the QuickDASH UE Sports/Performing Arts Module. 3d. Tyi will report that she is able to execute 10 or more push-ups without complaints of pain/discomfort of the distal R UE. 01/17/23 = currently not lifting weights; cardio based work-outs - Treatment 1 Descriptor Manual. Support of wrist range of motion. Exercises 6 Descriptor Wrist strengthening/Dynamic stabilization. Foam Press. 3 x 15. L <-> R. Blue balance disk. 3 x 15. L < -> R. N/A 01/17/23 3.3# weighted spherical ball. Angled Trampoline. Forearm pronation w/ wrist ext 2 x 15. Forearm pronation, UD and RD. 2 x 15. Forearm pronation w/ wrist ext 2 x 15 body turned 90 degrees . N/A 12/06/22 Approx 5-inch ball. Palm positioned at shoulder height w/ elbow in ext w/ wrist ext/ forearm pronation. L <-> R 1 x 15. CW/CCW circles 1 x 15. Up <-> down 1 x 15. Box bosu. TT. 2 x 15. Not ready to progress to floor level. 5 Descriptor Wrist strengthening. Elbow in 90 degrees flexion. Forearm supported on arm rest w/ wrist ext, flex, RD. Wrist ext 4# DB. 3 x 15. Wrist flex 4# DB. 3 [address] 4# DB. 3 x 15. Wrist UD 4# DB. 3 x 15. Wrist arc 3.3# weighted spherical ball. 3 x 15. Elbow 90 degrees flexion. TT. Wrist ext 3 cycles. 4# DB w/ elbows extended w/ use of dowel/rope. 11/29/22 = c/o discomfort; thus , transitioned to DB use. TB # 4. 1 x 15. Wrist flex. Wrist ext. Wrist UD (TT loop). Wrist RD. - Assessment Assessment of Improvement Krunal has made some progress with outpatient OT; she is presenting with improving pain -free active range of motion of right wrist and improving R wrist strength. Despite these gains, Krunal continues to present with R wrist weakness and R wrist pain/discomfort which is impacting her ability to complete tasks in various environments. She also reports intermittent distal R UE numbness; education has been completed re: recommended wearing of splint at night to avoid compression of the median nerve. Krunal is actively completing her home exercise program, icing the R wrist, and taking pain medication that was prescribed by her PCP . Krunal would likely continue to benefit from outpatient OT to address right wrist weakness, distal R UE pain/discomfort, pain/discomfort, in order to support her return to active engagement in meaningful activites in day-to-day life, including weight lifting. Recommend re-assessing medication manager strength and reviewing wrist PROM, median nerve glide, and myofascial self-release Home Exercise Program 12/13/22 = Rec removal of splint hourly w/ passive range of motion to wrist. Recommend icing 1-2 times per day. 11/16/22 = Provided personal TB #4 resistance band. Rec 3 sets of 15 reps every other day or 3 x a week. Wrist flex. Wrist ext. Wrist RD. Wrist UD. Instructed in tendon glides. Instructed in self myofascial release (carpal ligament) at wall. Recommended wrist cock- up splint w/ rigid volar wrist component. - Plan Therapy Recommendations Continue with Current Program, Advance per Rehabilitation Protocol Comment 8 weeks Frequency of Treatment Once a Week Therapeutic Contents Active Range of Motion, Adaptive Equipment Education, Client Education,Functional Activities,Home Exercise Program,Joint Protection, Manual Therapy,Education, Neurodevelopment Treatment, Neuromuscular Re-Education, Self-Care,Stretching/ Flexibility Activities, Therapeutic Activities, Therapeutic Exercises, Modalities Modalities As Needed,As Prescribed Additional Types of Modalities Heat/Ice/Contrast Baths/US Electronically Signed by: Emili Jimenez OT 01/17/23 1110 If you are in agreement with this Plan of Care, please return a signed and dated copy. I have reviewed this Plan of Care and certify that the skilled therapy services above are required to meet the patient?s needs. Physician Signature Date Printed Name and Credentials Clinical Instructor Signature Printed Name and Credentials
--- NOTE | 2023-01-24 11:20 | OT.OP.TRT ---
Visit Care Team Role Provider Type Jasmine Arteaga PA-C Attending Provider Non-Staff Family Provider Primary Care Provider Referring Provider Specialty: Medical Address: [address], [place], [address] Email: Occupational Therapy Treatment Note OT Outpatient Treatment Note - Adult Start: 11/14/22 12:28 Freq: Status: Active Protocol: Document 01/24/23 11:09 AMS (Rec: 01/24/23 11:20 AMS [id number]) OT Outpatient Adult Treatment Note Session Time Visit Start Time 09:45 Visit Stop Time 10:30 Total Visit Minutes 45 Visit Information Visit Number [id number] Plan of Care Dates 01/05/23 - 03/02/23 Insurance Information Prime; EVAL ONLY --> then 12 visits Setting Treatment Setting Outpatient Care Visit Type Note Type Treatment Note General Information General Information Krunal is a 27 year-old right hand dominant female referred to outpatient OT secondary to suspected R flexor tendonitis. Medical history: Depression; Tonsillectomy (October 2020). 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 - Subjective Identification Type Name Identification Reconciled With Medical Record Observations Report of intermittent numbness/tinging of the R distal UE w/ subsequent waking up of patient in the middle of the night. Report of splint /brace helping somewhat w/ change in sensation. Report of re-scheduled appointment w/ orthopedic surgeon for L knee to February 28. Patient/Caregiver Compliance with Home Excellent Exercise Program - Objective Objective Measurements Please refer to below for progress towards meeting established OT goals: Short Term Goals GOALS MET 0-45 degrees pain-free active R wrist flexion. *MET 01/17/23; 0-50 degrees pain-free active R wrist flex 0-45 degrees pain-free active R wrist flexion. *MET 01/17/23; 0-67 degrees pain-free active R wrist ext 0-20 degrees pain-free active R wrist UD. *MET 01/17/23; 0-25 degrees pain-free active R wrist UD [place] [facility] Goals 1. Tyi will be modified independent with home exercise program utilizing provided written and visual instructions from therapist. 2. Tyi will present with improved right wrist strength: 2a. 5/5 MMT right wrist flexion. 01/17/23 = 4+/5 ( versus initial 3/5 MMT) 2b. 5/5 MMT right wrist extension. 01/17/23 = 4/5 ( versus initial 3+/5 MMT) 2c. 5/[address] = 4+/5 (versus initial 3/5 MMT) 2d. 5/5 MMT right wrist UD. = 4+/5 (versus initial 3/5 MMT) 3. Tyi will present with increased ability to actively participate in meaningful activities (including lifting) ; this will be evidenced by the followina. Tyi will indicate 2 or less out of 10 on the Pain Assessment Grid relative to the distal R UE. 01/17/23 = 7/ 10 see scanned Pain Assessment Grid 3b. Tyi will obtain a score of 25.00 or less on the QuickDASH UE Outcome Measure. 3c. Tyi will obtain a score of 25.00 or less on the QuickDASH UE Sports/Performing Arts Module. 3d. Tyi will report that she is able to execute 10 or more push-ups without complaints of pain/discomfort of the distal R UE. 01/17/23 = currently not lifting weights; cardio based work-outs - Exercises 7 Descriptor Blue flex bar. 'U' 1 x 5. Upside down 'U'. 1 x 5. 6 Descriptor Wrist strengthening/Dynamic stabilization. Modified chair dips utilizing chair w/ bilateral arm rests. 3 x 10 completed w/ knees in approx 90 degrees flexion. Modified chair dips at edge of mat. 1 x 10. Preference for execution w/ utilization of chair w/ bilateral arm rests. Modified push-ups. Horizontal grab bar. 1 x 10. N/A 01/24/23 Foam Press. 3 x 15. L <-> R. Blue balance disk. 3 x 15. L < -> R. 3.3# weighted spherical ball. Angled Trampoline. Forearm pronation w/ wrist ext 2 x 15. Forearm pronation, UD and RD. 2 x 15. Forearm pronation w/ wrist ext 2 x 15 body turned 90 degrees. N/A 12/06/22 Approx 5-inch ball. Palm positioned at shoulder height w/ elbow in ext w/ wrist ext/ forearm pronation. L <-> R 1 x 15. CW/CCW circles 1 x 15. Up <-> down 1 x 15. Box bosu. TT. 2 x 15. Not ready to progress to floor level. 5 Descriptor Wrist strengthening. Elbow in 90 degrees flexion. Forearm supported on arm rest w/ wrist ext, flex, RD. Wrist ext 4# DB. 3 x 15. Wrist flex 4# DB. [address] 4# DB. 3 x 15. Wrist UD 4# DB. 3 x 15. Wrist arc 4.4# weighted spherical ball. 3 x 15. Elbow 90 degrees flexion. TT. Wrist ext 3 cycles. 5# DB w/ elbows extended w/ use of dowel/rope. 11/29/22 = c/o discomfort; thus , transitioned to DB use. TB # 4. 1 x 15. Wrist flex. Wrist ext. Wrist UD (TT loop). Wrist RD. 4 Descriptor UEB. x 6 minutes. x 4 minutes forwards. x 2 minutes backwards. No c/o pain/ discomfort and/or aggravation of symptoms of wrist. 3 Descriptor Passive wrist range of motion. Passive wrist flex/wrist extension w/ forearm supination and elbow ext. 1 x 20 sec hold. Prayer pose. Passive wrist/ digit extension w/ elbows in 90 degrees flex. 1 x 20 sec hold. Self myofascial release at wall. 1 x 20 sec hold. - Assessment Assessment of Improvement Intermittent change in sensation -> numbness impacting sleep cycle; some relief reported w/ use of brace at night. Upgraded ther exercises completed in treatment session. Upgraded HEP w/ recommendation to execute modified chair dips (3 x 15) w/ knees in approx 90 degrees flexion and modified push-ups w/ use of dumbbells and/or handrail (3 x 15). Introduced blue flex bar as an additional wrist/adult nurse practitioner strengthening option for home utilization. Krunal would likely continue to benefit from outpatient OT to address right wrist weakness, distal R UE pain/discomfort, pain/discomfort, in order to support her return to active engagement in meaningful activites in day-to-day life, including weight lifting. Recommend re-assessing adult nurse practitioner strength and reviewing wrist PROM, median nerve glide, and myofascial self-release Home Exercise Program 01/24/23 = Rec modified chair dips (3 x 15) w/ knees in approx 90 degrees flexion and modified push-ups w/ use of dumbbells and/or handrail (3 x 15). Rec consideration of blue flex bar as option for home use for wrist/hand/adult nurse practitioner strengthening. Discussed available purchase options ( theraband/flex bar). 12/13/22 = Rec removal of splint hourly w/ passive range of motion to wrist. Recommend icing 1-2 times per day. 11/16/22 = Provided personal TB #4 resistance band. Rec 3 sets of 15 reps every other day or 3 x a week. Wrist flex. Wrist ext. Wrist RD. Wrist UD. Instructed in tendon glides. Instructed in self myofascial release (carpal ligament) at wall. Recommended wrist cock- up splint w/ rigid volar wrist component. - Plan Therapy Recommendations Continue with Current Program, Advance per Rehabilitation Protocol
--- NOTE | 2023-01-31 10:37 | OT.OP.DC ---
Visit Care Team Role Provider Type Jasmine Arteaga PA-C Attending Provider Non-Staff Family Provider Primary Care Provider Referring Provider Address: [address], [place], [address] Email: OT Outpatient OT Outpatient Adult Evaluation Start: 11/14/22 12:28 Freq: Status: Active Protocol: Document 11/10/22 16:00 AMS (Rec: 11/14/22 13:01 AMS [id number]) General Information - Adult Visit Information Plan of Care Dates 11/10/22 - 01/05/23 Insurance Information Prime; EVAL ONLY --> then 12 vists Session Time Visit Start Time 07:40 Visit Stop Time 08:15 Total Visit Minutes 35 Setting Treatment Setting Outpatient Care Visit Type Note Type Initial Evaluation Identification Identification Confirmed Yes Identification Confirmed By Self Goals Short Term Goals Short Term Goals 1. Tyi will present with improved pain-free active range of motion of wrist: 1a. 0-45 degrees pain-free active R wrist flexion. 1b. 0-55 degrees pain-free active R wrist extension. 1c. 0-20 degrees pain-free active R wrist UD. Skilled Nursing Goals Public Health Aide Goals 1. Tyi will be modified independent with home exercise program utilizing provided written and visual instructions from therapist. 2. Tyi will present with improved right wrist strength: 2a. 5/5 MMT right wrist flexion. 2b. 5/5 MMT right wrist extension. 2c. 5/[address] 2d. 5/5 MMT right wrist UD. 3. Tyi will present with increased ability to actively participate in meaningful activities (including lifting) ; this will be evidenced by the followina. Tyi will indicate 2 or less out of 10 on the Pain Assessment Grid relative to the distal R UE. 3b. Tyi will obtain a score of 25.00 or less on the QuickDASH UE Outcome Measure. 3c. Tyi will obtain a score of 25.00 or less on the QuickDASH UE Sports/Performing Arts Module. 3d. Tyi will report that she is able to execute 10 or more push-ups without complaints of pain/discomfort of the distal R UE. Assessment/Plan Assessment Treatment Assessment Krunal is a 26 year-old right hand dominant female referred to outpatient OT secondary to suspected R flexor tendonitis. Medical history: Depression; Tonsillectomy (October 2020). 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 Symptoms presented reported in Mar/Apr and over the last couple of weeks symptoms have gotten worse. On Pain Assessment Grid, Krunal indicated 8 out of 10 on the Pain Assessment Grid relative to the distal R UE (dorsal/ volar surfaces of the R hand were specifically indicated on the hand/wrist Pain Assessment Grid). She obtained a QuickDASH UE Outcome Measure Score of = 54.55 and QuickDASH UE Outcome Measure Sports/Performing Arts ( Lifting) Module Score of = 37. 50. Pain reported w/ palpation of the R volar wrist; tightness of thumb adductor palpated R > L. She does c/o numbness; with reverse Phalen' s test, she was able to tolerate positioning of wrists in bilateral flexion x 1 minute however, some discomfort was noted. She Tyi denies use of right distal UE brace; she is not doing push- ups and has decreased weight/ resistance w/ lifting secondary to symptoms. She is icing and doing stretches for the wrists throughout the day, as well as taking anti inflammatory. Goniometer Measurements: 0-45 degrees active R wrist flexion versus 0-30 degrees active pain-free R wrist flexion; 0-55 degrees active R wrist extension versus 0-45 degrees pain-free active R wrist extension; 0-15 degrees active R pain-free wrist RD; 0-20 degrees active R wrist UD versus 0-15 degrees active pain-free R wrist UD. MMT results = 3/5 R wrist flex MMT; 3+/5 wrist ext MMT; 3/[address] MMT; 3/5 wrist UD MMT. Dynamometer II strength testing results = 18.0# of force R steel fitter versus 68.0# of force w/ L steel fitter w/ elbow in 90 degrees; 5.0# of force w/ R steel fitter versus 52.0# of force w/ L steel fitter w/ elbow in ext. Krunal presents with distal R UE pain/discomfort, decreased pain-free R wrist ROM, decreased R wrist strength, decreased steel fitter strength, and decreased ability to engage in meaningful activities, including lifting; she would likely benefit from outpatient OT to address these areas in order to maximize her success w/ active engagement in meaningful activites in day-to -day life. Recommend monitoring for signs of median nerve impingement given Krunal's concerns; recommend completing Tinel's test. Home Exercise Program 11/10/22 = Provided w/ [employer] theraputty d/t concerns w/ decreased steel fitter strength; instructed in care and storage of theraputty. Rec working on gross flexion and pinching and pulling theraputty. Rec wrist flexion and wrist extension passive range of motion exercises; holding each stretch for 20 to 30 seconds. Also instructed in self myofascial release of bilateral thumb adductors w/ instruction to hold for 20 to 30 seconds. Plan Length of treatment (weeks) 8 Plan of Care Start Date 11/10/22 Plan of Care End Date 01/05/23 Treatment Frequency Once a Week Therapeutic Contents Active Range of Motion, Adaptive Equipment Education, Client Education,Cognitive Skills Development,Functional Activities,Home Exercise Program,Joint Protection, Manual Therapy,Education, Neurodevelopment Treatment, Self-Care,Stretching/ Flexibility Activities, Therapeutic Activities, Therapeutic Exercises, Modalities Modalities As Needed,As Prescribed Additional Types of Modalities Ultrasound/Heat/Ice/Contrast baths/Paraffin bath Functional Wrist/Hand Scan Hand Side Sensory Assessment Sensory Profile2 OT Outpatient Treatment Note - Adult Start: 11/14/22 12:28 Freq: Status: Active Protocol: Document 01/31/23 10:31 [facility] (Rec: 01/31/23 10:36 [facility] [id number]) OT Outpatient Adult Treatment Note Session Time Visit Start Time 09:45 Visit Stop Time 10:30 Total Visit Minutes 45 Visit Information Visit Number [id number] Plan of Care Dates 01/05/23 - 03/02/23 Insurance Information Prime; EVAL ONLY --> then 12 visits Setting Treatment Setting Outpatient Care Visit Type Note Type Treatment Note General Information General Information Krunal is a 27 year-old right hand dominant female referred to outpatient OT secondary to suspected R flexor tendonitis. Medical history: Depression; Tonsillectomy (October 2020). 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 - Subjective Identification Type Name Identification Reconciled With Medical Record Observations Report of no further need for additional outpatient OT appointments; will continue w/ home exercises. Report of re- scheduled appointment w/ orthopedic surgeon for L knee to February 28. Patient/Caregiver Compliance with Home Excellent Exercise Program - Objective Objective Measurements Please refer to below for progress towards meeting established OT goals: Short Term Goals GOALS MET 0-45 degrees pain-free active R wrist flexion. *MET 01/17/23; 0-50 degrees pain-free active R wrist flex 0-45 degrees pain-free active R wrist flexion. *MET 01/17/23; 0-67 degrees pain-free active R wrist ext 0-20 degrees pain-free active R wrist UD. *MET 01/17/23; 0-25 degrees pain-free active R wrist UD Public Health Aide Goals GOALS MET Mod independent w/ home exercise program. *MET 01/31/23 Able to execute 10 or more push-ups without complaints of pain/discomfort of the distal R UE (utilizes dumbbells). * MET 01/31/23 GOALS D/C 01/31/23 2. Tyi will present with improved right wrist strength: 2a. 5/5 MMT right wrist flexion. 01/17/23 = 4+/5 ( versus initial 3/5 MMT) 2b. 5/5 MMT right wrist extension. 01/17/23 = 4/5 ( versus initial 3+/5 MMT) 2c. 5/[address] = 4+/5 (versus initial 3/5 MMT) 2d. 5/5 MMT right wrist UD. = 4+/5 (versus initial 3/5 MMT) 3. Tyi will present with increased ability to actively participate in meaningful activities (including lifting) ; this will be evidenced by the followina. Tyi will indicate 2 or less out of 10 on the Pain Assessment Grid relative to the distal R UE. 01/17/23 = 7/ 10 see scanned Pain Assessment Grid 3b. Tyi will obtain a score of 25.00 or less on the QuickDASH UE Outcome Measure. 3c. Tyi will obtain a score of 25.00 or less on the QuickDASH UE Sports/Performing Arts Module. - Exercises 7 Descriptor Blue flex bar. 'U'. 3 x 15. Upside down 'U'. 3 x 15. 6 Descriptor Wrist strengthening/Dynamic stabilization. Modified chair dips utilizing chair w/ bilateral arm rests. 3 x 10 completed w/ knees in approx 90 degrees flexion. Modified chair dips at edge of mat. 1 x 10. Preference for execution w/ utilization of chair w/ bilateral arm rests. Modified push-ups. Horizontal grab bar. 1 x 10. N/A 01/24/23 Foam Press. 3 x 15. L <-> R. Blue balance disk. 3 x 15. L < -> R. 3.3# weighted spherical ball. Angled Trampoline. Forearm pronation w/ wrist ext 2 x 15. Forearm pronation, UD and RD. 2 x 15. Forearm pronation w/ wrist ext 2 x 15 body turned 90 degrees. N/A 12/06/22 Approx 5-inch ball. Palm positioned at shoulder height w/ elbow in ext w/ wrist ext/ forearm pronation. L <-> R 1 x 15. CW/CCW circles 1 x 15. Up <-> down 1 x 15. Box bosu. TT. 2 x 15. Not ready to progress to floor level. 5 Descriptor Wrist strengthening. Elbow in 90 degrees flexion. Forearm supported on arm rest w/ wrist ext, flex, RD. Wrist ext 5# DB 2 x 15. 4# DB 1 x 15. Wrist flex 5# DB 2 x 15. 4# DB 1 x 15. Wrist [address] 5# DB 2 x 15. 4# DB 1 x 15. Wrist UD 5# DB 2 x 15. 4# DB 1 x 15. Wrist arc 4.4# weighted spherical ball. 3 x 15. Elbow 90 degrees flexion. TT. Wrist arc 3.3# weighted spherical ball w/ elbow extended. 3 x 15 . Wrist ext 3 cycles. 5# DB w/ elbows extended w/ use of dowel/rope. 11/29/22 = c/o discomfort; thus , transitioned to DB use. TB # 4. 1 x 15. Wrist flex. Wrist ext. Wrist UD (TT loop). Wrist RD. 4 Descriptor UEB. x 5 minutes. Seated. No c /o pain/discomfort and/or aggravation of symptoms of wrist. 3 Descriptor Passive wrist range of motion. Passive wrist flex/wrist extension w/ forearm supination and elbow ext. 1 x 20 sec hold. Prayer pose. Passive wrist/ digit extension w/ elbows in 90 degrees flex. 1 x 20 sec hold. Self myofascial release at wall. 1 x 20 sec hold. - Assessment Assessment of Improvement Report of no further need for outpatient OT visits; will cont w/ HEP. Met HEP independence goal as well as ability to execute push-ups utilizing dumbbells for positioning of wrists. Recommend d/c from outpatient OT at this time. Home Exercise Program 01/24/23 = Rec modified chair dips (3 x 15) w/ knees in approx 90 degrees flexion and modified push-ups w/ use of dumbbells and/or handrail (3 x 15). Rec consideration of blue flex bar as option for home use for wrist/hand/steel fitter strengthening. Discussed available purchase options ( theraband/flex bar). 12/13/22 = Rec removal of splint hourly w/ passive range of motion to wrist. Recommend icing 1-2 times per day. 11/16/22 = Provided personal TB #4 resistance band. Rec 3 sets of 15 reps every other day or 3 x a week. Wrist flex. Wrist ext. Wrist RD. Wrist UD. Instructed in tendon glides. Instructed in self myofascial release (carpal ligament) at wall. Recommended wrist cock- up splint w/ rigid volar wrist component. - Plan Therapy Recommendations Discharge from Occupational Therapy
== END 2023-01-31 14:07 | disposition home or self-care (01) ==
LOC: OT 09:45
PROVIDERS: Absent Provider Physician Assistant Medical; Family Provider Physician Assistant Medical; PCP Physician Assistant Medical; Referring Provider Physician Assistant Medical; Visit Provider Physician Assistant Medical
DX: M65.841 Other synovitis and tenosynovitis, right hand (principal); R53.1 Weakness
CPT/HCPCS: 97110; 97140; 97165; 97530